=== PATIENT | female | born 1985 | race Caucasian/White ===

== ENCOUNTER 2016-11-22 15:50 | Observation (INO) | payer MEDICAID, SELFPAY ==
[2016-11-22 16:06] VITALS: BP 105/53; PULSE 60; RESP 14; TEMP 36.6; BMI 22.4; BMI 22.5
--- NOTE | 2016-11-22 16:19 | PCM.HP.STD ---
Problem List (1) Opiate withdrawal Status: Acute (2) Nicotine abuse Status: Chronic (3) Crack cocaine use Status: Chronic (4) Abscess Status: Chronic History of Present Illness Date of Admission: 11/22/16 Chief Complaint: heroin withdrawal The patient is a 31 year old F who presented to the hospital through the [facility] program for acute opiate withdrawal. She abuses IV heroin through injection sites in her arms. Last use was yesterday evening. She is using about 3-4 g per day. She has been abusing heroin for about 5 years and she has never been through detox before. Her current withdrawal symptoms include hot flashes, nausea, stomach pain, generalized pain, and sweatiness. She does have a healing abscess on her right arms with track bautista going up her right arm that she says was treated with IV antibiotics. It has opened up and has had significant drainage but is no longer draining. She also admits to sporadic crack cocaine use occasional marijuana. After discharge she plans on pursuing counseling and outpatient Suboxone therapy. She denies alcohol or benzodiazepine use. She smokes a pack a day and would like a patch. [] Past Medical History Past Medical History (Chronic Problems): Chronic Problems Abscess (Chronic) Crack cocaine use (Chronic) Nicotine abuse (Chronic) Allergies No Known Allergies Allergy (Verified 11/22/16 16:09) Home Medications: Ambulatory Orders Medication Instructions Recorded No Known/Unobtainable [No Known 11/22/16 Home Medications] Surgical History: - - LEAP procedure, tubal ligation. Psychiatric History: No pertinent psych hx [employer]ED [employer] History: - - LEAP procedure, tubal ligation. Lives: Homeless, - Smoking Status: Current every day smoker Tobacco Use: Non-smoker, Cigarettes Alcohol: None Drugs: Cocaine, Heroin, Marijuana - *Family History Paternal History Items: - - RA and fibro Maternal History Items: COPD - emphysema Review of Systems Constitutional: Reports: - - hot flashes. Denies: Chills, Fever, Weight Change HEENT: Denies: Head Aches, Sinus Congestion, Sinus Drainage Cardiovascular: Denies: Chest Pain, Palpitations Respiratory: Denies: Cough, Shortness of breath at rest, Sputum production Gastrointestinal: Reports: Abdominal Pain, Nausea. Denies: Vomiting Genitourinary: Denies: Dysuria Musculoskeletal: Reports: - - generalized muscle pain. Denies: Joint Pain, Joint Tenderness Skin: Denies: Rash, Wounds Neurological: Denies: Numbness, Tingling, Focal weakness Psychiatric: Denies: Anxiety, Depression, Homicidal Ideations, Suicidal Ideations Hematologic/ Lymphatic: Denies: Easy Bruising, Easy Bleeding VTE Information - Inpt Only VTE Present on Admission: No VTE Mechan Device Prophylaxis: None VTE Pharm Prophylaxis ordered?: No Reason prophylaxis not ordered:: Procedure Not Indicated Patient Problems: Active and Suspected Problems Opiate withdrawal (Acute) - Physical Exam General: Alert, Oriented x3, Cooperative HEENT: Atraumatic, PERRLA, EOMI, Normocephalic Neck: Supple, No JVD, Negative Carotid Bruits Lungs: Clear to auscultation, Normal air movement Cardiovascular: Regular rate, No murmurs Abdomen: Bowel Sounds Present, Soft, Non Tender Extremities: No edema, Capillary Refill Less than 3 Seconds, - Skin: No rashes, No breakdown, Ulcer/ Wound - There is a silver dollar sized abscess with well-demarcated erythema located over the right forearm. It is raised and it is opened. There is no drainage and none was able to be expressed at this time., - - Track bautista bilateral arms Musculoskeletal: No Tenderness to Palpation of Joints or Extremities Neurological: Cranial nerves II-XII grossly intact Psych/Mental Status: Normal Affect, Appropriate Vital Signs Temp Pulse Resp BP Pulse Ox 97.9 F 60 14 105/53 11/22/16 16:06 11/22/16 16:06 11/22/16 16:06 11/22/16 16:06 Weight: 61.235 kg Body Mass Index (BMI) 22.4 Assessment/Plan Active and Suspected Problems Opiate withdrawal (Acute) #1 acute opiate withdrawal-patient 3-4 g per day heroin IV abuser. Current withdrawal symptoms include sweatiness, hot flashes, generalized muscle pain, nausea, stomach pain. Patient admitted through the [facility] program and will follow medical stabilization protocol. 2. Polysubstance abuse-also occasionally uses crack and marijuana. 3. Nicotine abuse-1 pack per day smoker, provide nicotine patch. 4. Healing abscess right arm. Defer therapy at this time. Was treated with IV antibiotics, unclear which. Discharge planning: Patient planning to pursue outpatient counseling and Suboxone therapy.
[2016-11-22] MEDS: Methocarbamol 750 MG Tablet PO (17:33)
[2016-11-22] MEDS: chlordiazePOXIDE 25 MG Capsule PO ×2 (17:33→21:57)
[2016-11-22] MEDS: Buprenorphine HCl 2 MG TAB.SUBL SL (17:33)
[2016-11-22] MEDS: QUEtiapine 25 MG Tablet PO (20:44)
[2016-11-22] MEDS: Carbidopa/Levodopa 25/100 Tablet PO (20:44)
[2016-11-22] MEDS: Ibuprofen 400 MG Tablet 800 MG PO (20:44)
[2016-11-22 21:04] VITALS: BP 99/45; PULSE 68; RESP 18; TEMP 37
[2016-11-23] MEDS: chlordiazePOXIDE 25 MG Capsule PO ×4 (01:09→14:48)
[2016-11-23] MEDS: Buprenorphine HCl 2 MG TAB.SUBL SL ×3 (01:09→17:38)
[2016-11-23] MEDS: Dicyclomine 10 MG Capsule 20 MG PO (01:09)
[2016-11-23] MEDS: Methocarbamol 750 MG Tablet PO (01:09)
[2016-11-23 01:12] VITALS: BP 93/53; PULSE 78; RESP 16; TEMP 36.9
[2016-11-23] MEDS: QUEtiapine 25 MG Tablet PO ×2 (05:24→14:48)
[2016-11-23] MEDS: Carbidopa/Levodopa 25/100 Tablet PO ×2 (05:24→14:48)
[2016-11-23] MEDS: Ibuprofen 400 MG Tablet 800 MG PO (05:24)
[2016-11-23 05:27] VITALS: BP 126/58; PULSE 58; RESP 16; TEMP 36.6
[2016-11-23 08:33] VITALS: BP 89/48; PULSE 62; RESP 16; TEMP 36.5; O2SAT 100
--- NOTE | 2016-11-23 09:44 | PN_ITS ---
Patient Problems: Active and Suspected Problems Opiate withdrawal (Acute) Subjective: Patient states that she hurts in her back has abdominal pain. Just feels numb Vitals/I&O's: Vital Signs Temp Pulse Resp BP Pulse Ox 36.5 C 62 16 89/48 100 11/23/16 08:33 11/23/16 08:33 11/23/16 08:33 11/23/16 08:33 11/23/16 08:33 Oxygen Delivery Method Room Air Weight: 61.235 kg Body Mass Index (BMI) 22.4 Intake and Output for Last 24 Hours 11/21/16 11/22/16 11/23/16 23:59 23:59 23:59 Intake Total 340 Balance 340 General: - - Groggy. Laying on her left side directed way for me. Does not make any attempts for eye contact. HEENT: Atraumatic, Normocephalic Neck: Thyroid Normal Size and Texture Lungs: Clear to auscultation, No rhonchi, No wheeze, Diminished Cardiovascular: Regular rate, Regular Rhythm, Normal S1, Normal S2 Abdomen: Non Tender, Non-Distended Extremities: No edema, No Calf Tenderness Current Medications Acetaminophen (Tylenol) 650 mg PO Q4H PRN PRN PRN Reason: Temp>99.1F Buprenorphine HCl (Buprenorphine Hcl) 4 mg SL Q8H ESPERANZA PRN Reason: Taper Stop: 11/25/16 21:14 Last Admin: 11/23/16 08:29 Dose: 4 mg Carbidopa/Levodopa (Sinemet) 1 tablet PO Q8H PRN PRN PRN Reason: RESTLESSNESS Last Admin: 11/23/16 05:24 Dose: 1 tablet Chlordiazepoxide (Librium) 25 mg PO Q6H PRN PRN PRN Reason: Mod-Sev Anxiety (score 2-3/3) Chlordiazepoxide (Librium) 25 mg PO Q4 ESPERANZA Stop: 11/23/16 14:01 Last Admin: 11/23/16 05:24 Dose: 25 mg Clonidine (Catapres) 0.1 mg PO Q2H PRN PRN Reason: Hot/Cold Sweats or Anxiety Dicyclomine HCl (Bentyl) 20 mg PO Q6H PRN PRN PRN Reason: Abdomnial Discomfort Last Admin: 11/23/16 01:09 Dose: 20 mg Hydroxyzine Pamoate (Vistaril) 50 mg PO Q6H PRN PRN PRN Reason: Mild Anxiety (score 1/3) Ibuprofen (Motrin) 800 mg PO Q8H PRN PRN PRN Reason: Mild-Moderate Pain (1-5/10) Last Admin: 11/23/16 05:24 Dose: 800 mg Methocarbamol (Methocarbamol) 750 mg PO 4X/DAY PRN PRN Reason: Muscle Aches Last Admin: 11/23/16 01:09 Dose: 750 mg Nicotine (Nicoderm Cq (Pbkc)) 21 mg TRANSDERM. DAILY ESPERANZA Last Admin: 11/23/16 08:29 Dose: 21 mg Nutritional Formula (Lactose Free) (Ensure Enlive) 120 ml PO 4X/DAY ESPERANZA Last Admin: 11/22/16 21:57 Dose: Not Given Quetiapine Fumarate (Seroquel) 25 mg PO Q6H PRN PRN PRN Reason: Moderate Anxiety (score 2/3) Last Admin: 11/23/16 05:24 Dose: 25 mg Assessment/Plan Active and Suspected Problems Opiate withdrawal (Acute) 1. Acute opiate withdrawal * Continue with the Subutex taper. Additionally continue with other agents to help with other somatic complaints. * Patient is currently on Librium. Patient is very somnolent may be related with Librium so he can discontinue that.
[2016-11-23 12:37] VITALS: BP 109/51; PULSE 67; RESP 16; TEMP 36.6
[2016-11-23 12:39] VITALS: BP 109/51; PULSE 67; RESP 16; TEMP 36.6; O2SAT 100
[2016-11-23 15:15] VITALS: BP 97/51; PULSE 80; RESP 16; TEMP 36.5; O2SAT 98
[2016-11-24] VITALS: BP 98/53; PULSE 65; RESP 16; TEMP 36.7
[2016-11-24] MEDS: Methocarbamol 750 MG Tablet PO ×3 (00:13→17:54)
[2016-11-24] MEDS: Carbidopa/Levodopa 25/100 Tablet PO ×3 (00:13→17:54)
[2016-11-24] MEDS: QUEtiapine 25 MG Tablet PO ×3 (00:13→17:54)
[2016-11-24] MEDS: Buprenorphine HCl 2 MG TAB.SUBL SL ×3 (00:13→22:09)
--- NOTE | 2016-11-24 08:44 | PCM.PN.HOSP ---
Patient Problems: Active and Suspected Problems Opiate withdrawal (Acute) Subjective: Still with variety complaints. Patient does have some shortness of breath which she feels is limited due to her belly pain just does not feel well overall. Is able to drink but appetite has not been all the sufficient, in her opinion. Vitals/I&O's: Vital Signs Temp Pulse Resp BP Pulse Ox 36.7 C 65 16 98/53 98 11/24/16 00:00 11/24/16 00:00 11/24/16 00:00 11/24/16 00:00 11/23/16 15:15 Oxygen Delivery Method Room Air Weight: 61.2 kg Body Mass Index (BMI) 22.4 Intake and Output for Last 24 Hours 11/22/16 11/23/16 11/24/16 23:59 23:59 23:59 Intake Total 340 650 300 Balance 340 650 300 General: Alert, Cooperative, No apparent distress, - - Much more alert today and interactive. HEENT: Atraumatic, Normocephalic Neck: No Nodes, Thyroid Normal Size and Texture Lungs: Clear to auscultation, Normal air movement, No rhonchi, No wheeze Cardiovascular: Regular rate, Regular Rhythm, Normal S1, Normal S2, No murmurs Abdomen: Bowel Sounds Present, Soft, Non Tender, Non-Distended, No Hepato-splenomegaly Extremities: No clubbing, No cyanosis, No edema, No Calf Tenderness Skin: No rashes, No breakdown Psych/Mental Status: Normal Affect, Appropriate Current Medications Acetaminophen (Tylenol) 650 mg PO Q4H PRN PRN PRN Reason: Temp>99.1F Buprenorphine HCl (Buprenorphine Hcl) 2 mg SL Q8H ESPERANZA PRN Reason: Taper Stop: 11/25/16 21:14 Last Admin: 11/24/16 00:13 Dose: 2 mg Carbidopa/Levodopa (Sinemet) 1 tablet PO Q8H PRN PRN PRN Reason: RESTLESSNESS Last Admin: 11/24/16 00:13 Dose: 1 tablet Clonidine (Catapres) 0.1 mg PO Q2H PRN PRN Reason: Hot/Cold Sweats or Anxiety Dicyclomine HCl (Bentyl) 20 mg PO Q6H PRN PRN PRN Reason: Abdomnial Discomfort Last Admin: 11/23/16 01:09 Dose: 20 mg Hydroxyzine Pamoate (Vistaril) 50 mg PO Q6H PRN PRN PRN Reason: Mild Anxiety (score 1/3) Ibuprofen (Motrin) 800 mg PO Q8H PRN PRN PRN Reason: Mild-Moderate Pain (1-5/10) Last Admin: 11/23/16 05:24 Dose: 800 mg Methocarbamol (Methocarbamol) 750 mg PO 4X/DAY PRN PRN Reason: Muscle Aches Last Admin: 11/24/16 00:13 Dose: 750 mg Nicotine (Nicoderm Cq (Pbkc)) 21 mg TRANSDERM. DAILY ESPERANZA Last Admin: 11/23/16 08:29 Dose: 21 mg Nutritional Formula (Lactose Free) (Ensure Enlive) 120 ml PO 4X/DAY ESPERANZA Last Admin: 11/23/16 21:30 Dose: Not Given Quetiapine Fumarate (Seroquel) 25 mg PO Q6H PRN PRN PRN Reason: Moderate Anxiety (score 2/3) Last Admin: 11/24/16 00:13 Dose: 25 mg Assessment/Plan Active and Suspected Problems Opiate withdrawal (Acute) 1. Acute opiate withdrawal Continue with the Subutex taper. Additionally continue with other agents to help with other somatic complaints. Patient is currently on Librium. Patient is very somnolent may be related with Librium so he can discontinue that. Will give patient IV fluids today see how that helps her as patient states that she is not eating or drinking much. Plan is for the patient to be discharged tomorrow morning after last dose of Subutex and then further outpatient management to be facilitated by [facility].
--- NOTE | 2016-11-24 08:49 | PN_ITS ---
Patient Problems: Active and Suspected Problems Opiate withdrawal (Acute) Subjective: Still with variety complaints. Patient does have some shortness of breath which she feels is limited due to her belly pain just does not feel well overall. Is able to drink but appetite has not been all the sufficient, in her opinion. Vitals/I&O's: Vital Signs Temp Pulse Resp BP Pulse Ox 36.7 C 65 16 98/53 98 11/24/16 00:00 11/24/16 00:00 11/24/16 00:00 11/24/16 00:00 11/23/16 15:15 Oxygen Delivery Method Room Air Weight: 61.2 kg Body Mass Index (BMI) 22.4 Intake and Output for Last 24 Hours 11/22/16 11/23/16 11/24/16 23:59 23:59 23:59 Intake Total 340 650 300 Balance 340 650 300 General: Alert, Cooperative, No apparent distress, - - Much more alert today and interactive. HEENT: Atraumatic, Normocephalic Neck: No Nodes, Thyroid Normal Size and Texture Lungs: Clear to auscultation, Normal air movement, No rhonchi, No wheeze Cardiovascular: Regular rate, Regular Rhythm, Normal S1, Normal S2, No murmurs Abdomen: Bowel Sounds Present, Soft, Non Tender, Non-Distended, No Hepato- splenomegaly Extremities: No clubbing, No cyanosis, No edema, No Calf Tenderness Skin: No rashes, No breakdown Psych/Mental Status: Normal Affect, Appropriate Current Medications Acetaminophen (Tylenol) 650 mg PO Q4H PRN PRN PRN Reason: Temp>99.1F Buprenorphine HCl (Buprenorphine Hcl) 2 mg SL Q8H ESPERANZA PRN Reason: Taper Stop: 11/25/16 21:14 Last Admin: 11/24/16 00:13 Dose: 2 mg Carbidopa/Levodopa (Sinemet) 1 tablet PO Q8H PRN PRN PRN Reason: RESTLESSNESS Last Admin: 11/24/16 00:13 Dose: 1 tablet Clonidine (Catapres) 0.1 mg PO Q2H PRN PRN Reason: Hot/Cold Sweats or Anxiety Dicyclomine HCl (Bentyl) 20 mg PO Q6H PRN PRN PRN Reason: Abdomnial Discomfort Last Admin: 11/23/16 01:09 Dose: 20 mg Hydroxyzine Pamoate (Vistaril) 50 mg PO Q6H PRN PRN PRN Reason: Mild Anxiety (score 1/3) Ibuprofen (Motrin) 800 mg PO Q8H PRN PRN PRN Reason: Mild-Moderate Pain (1-5/10) Last Admin: 11/23/16 05:24 Dose: 800 mg Methocarbamol (Methocarbamol) 750 mg PO 4X/DAY PRN PRN Reason: Muscle Aches Last Admin: 11/24/16 00:13 Dose: 750 mg Nicotine (Nicoderm Cq (Pbkc)) 21 mg TRANSDERM. DAILY ESPERANZA Last Admin: 11/23/16 08:29 Dose: 21 mg Nutritional Formula (Lactose Free) (Ensure Enlive) 120 ml PO 4X/DAY ESPERANZA Last Admin: 11/23/16 21:30 Dose: Not Given Quetiapine Fumarate (Seroquel) 25 mg PO Q6H PRN PRN PRN Reason: Moderate Anxiety (score 2/3) Last Admin: 11/24/16 00:13 Dose: 25 mg Assessment/Plan Active and Suspected Problems Opiate withdrawal (Acute) 1. Acute opiate withdrawal * Continue with the Subutex taper. Additionally continue with other agents to help with other somatic complaints. * Patient is currently on Librium. Patient is very somnolent may be related with Librium so he can discontinue that. * Will give patient IV fluids today see how that helps her as patient states that she is not eating or drinking much. * Plan is for the patient to be discharged tomorrow morning after last dose of Subutex and then further outpatient management to be facilitated by [facility].
[2016-11-24 08:59] VITALS: BP 101/59; PULSE 68; RESP 18; TEMP 36.7
[2016-11-24] MEDS: Dicyclomine 10 MG Capsule 20 MG PO ×2 (09:30→17:54)
[2016-11-24] MEDS: cloNIDine HCl 0.1 MG Tablet PO (09:30)
--- NOTE | 2016-11-24 11:37 | NURSING ---
Pt's withdrawal assessment score is a 7 this AM. PRN medications given. See MAR. Pt tearful, stating she does not have a good support system. She says her boyfriend, who wanted her to get clean, has not come to visit her and has not called her. She states that her mom brought her to the hospital, but has not been here to visit. She states she fears she is going to get out of here and start using heroin again. Sat with pt and listened to her voice her concerns.
[2016-11-24] MEDS: 0.9% Normal Saline 1,000 ML 150 ML IV ×2 (12:30→18:54)
[2016-11-24 14:00] VITALS: BP 90/51; PULSE 76; RESP 18; TEMP 36.9
[2016-11-24 17:48] VITALS: BP 95/58; PULSE 81; RESP 16; TEMP 36.9
--- NOTE | 2016-11-24 18:08 | NURSING ---
Pt refusing HIV testing to be done, and will not sign consent form. Notified Dr Ortiz. Lab is aware.
[2016-11-24 22:00] VITALS: BP 87/52; PULSE 53; RESP 16; TEMP 36.6
[2016-11-25] MEDS: 0.9% Normal Saline 1,000 ML 150 ML IV ×2 (01:39→07:20)
[2016-11-25 04:55] VITALS: BP 94/44; PULSE 67; RESP 14; TEMP 36.6
[2016-11-25 08:33] VITALS: BP 97/57; PULSE 67; RESP 18; TEMP 37.1; O2SAT 100
[2016-11-25] MEDS: Dicyclomine 10 MG Capsule 20 MG PO (08:42)
[2016-11-25] MEDS: Buprenorphine HCl 2 MG TAB.SUBL SL (08:42)
[2016-11-25] MEDS: Methocarbamol 750 MG Tablet PO (08:42)
[2016-11-25] MEDS: Carbidopa/Levodopa 25/100 Tablet PO (08:42)
--- NOTE | 2016-11-25 08:46 | NURSING ---
PT REQUESTING TO USE THIS RN'S PHONE TO MAKE A LONG DISTANCE CALL TO HER MOTHER. STATES SOMEONE FROM IS COMING TO TALK TO HER THIS AM & SHE WANTS HER MOTHER TO BE HERE. PT STATES IM NOT READY TO LEAVE. NOTHING HERE IS HELPING. IM JUST GOING TO LEAVE HERE & USE. PT DID CALL MOTHER & ASKED HER TO COME HERE TO BE WITH HER WHEN IT QUALITY ANALYST FROM COMES TO SPEAK WITH HER.
--- NOTE | 2016-11-25 09:28 | PCM.DC ---
- Discharge Diagnoses Current Active Problems: Current Active and Chronic Problems Opiate withdrawal (Acute) Abscess (Chronic) Crack cocaine use (Chronic) Nicotine abuse (Chronic) You will use the following diet at home:: No restrictions Discharge Activity: May not drive while taking narcotic pain medications. Allergies/Adverse Reactions: Allergies No Known Allergies Allergy (Verified 11/22/16 16:09) Medications to take at Discharge HydrOXYzine MADISYN [Vistaril] 50 mg PO Q6H PRN PRN #30 capsule 11/25/16 Ondansetron [Zofran Odt] 8 mg PO Q8H PRN PRN #20 tab 11/25/16 The following prescriptions were given: HydrOXYzine MADISYN [Vistaril] 50 mg PO Q6H PRN PRN #30 capsule PRN Reason: Mild Anxiety (score 1/3) Ondansetron [Zofran Odt] 8 mg PO Q8H PRN PRN #20 tab PRN Reason: Nausea/Vomiting Primary Care Physician: Care Physician,No Primary [Primary Care Provider] - Proposed Discharge Date: 11/25/16
--- NOTE | 2016-11-25 09:32 | DS.PCM_ITS ---
Discharge Date and Diagnosis - Problem List Patient Problems: Active and Suspected Problems Opiate withdrawal (Acute) Date of Admission: 11/22/16 Date of Discharge: 11/25/16 - Primary Discharge Diagnosis Active and Suspected Problems Opiate withdrawal (Acute) - Secondary Discharge Diagnosis Chronic Problems Abscess (Chronic) Crack cocaine use (Chronic) Nicotine abuse (Chronic) Hospital Course and Treatment Summary of Care Provided: The patient is a 31 year old F with history of polysubstance heroine who presented with acute opioid withdrawal 1. Acute opioid withdrawal patient was admitted to regular nursing floor management and [facility] medical stabilization protocol using Subutex patient did improve. She did request for prescription for nausea as well as anxiety on discharge prescriptions were written for Zofran as well as hydroxyzine. Regarding her other polysubstance abuse she was counseled on cessation. Discharge Diet: No Restrictions Discharge Activity: May not drive while taking narcotic pain medications. Home Medications: Medications to take at Discharge HydrOXYzine MADISYN [Vistaril] 50 mg PO Q6H PRN PRN #30 capsule 11/25/16 Ondansetron [Zofran Odt] 8 mg PO Q8H PRN PRN #20 tab 11/25/16 Following Prescrptions Were Given to Patient: HydrOXYzine MADISYN [Vistaril] 50 mg PO Q6H PRN PRN #30 capsule PRN Reason: Mild Anxiety (score 1/3) Ondansetron [Zofran Odt] 8 mg PO Q8H PRN PRN #20 tab PRN Reason: Nausea/Vomiting Primary Care Physician: Care Physician,No Primary [Primary Care Provider] - Disposition: Home Minutes spent on discharge:: 35 Patient Condition:: Stable Meaningful Use Info Meaningful Use Diagnoses (Choose all that apply): None applicable
[2016-11-25 10:00] VITALS: BP 97/57; PULSE 67; RESP 18; TEMP 37.1
[2016-11-25 11:00] VITALS: BP 97/57; PULSE 67; RESP 18; TEMP 37.1; O2SAT 100
--- NOTE | 2016-11-25 11:09 | NURSING ---
PT WAS GIVEN DC INSTRUCTIONS. PT WAS TOLD TO PUT NURSE LIGHT ON WHEN HER RIDE GOT HERE SO A STAFF MEMBER COULD WALK HER OUT. UPON ENTERING PT ROOM, FOUND THAT PT HAD WALKED OUT WITHOUT NOTIFYING NURSE. LEFT PAPERWORK GIVEN TO HER FROM OUTPT REHAB ON HER BED.
== END 2016-11-25 11:15 | disposition home or self-care (01) | DRG 773 ==
LOC: MS2 04-21 08:44
PROVIDERS: Admitting Provider Internal Medicine; Visit Provider Internal Medicine
DX: F11.23 Opioid dependence with withdrawal (principal); F14.90 Cocaine use, unspecified, uncomplicated; F17.210 Nicotine dependence, cigarettes, uncomplicated; L02.413 Cutaneous abscess of right upper limb; Z59.0 Homelessness
CPT/HCPCS: 97802; 99218; J7030; A4216; G0378; G0379